=== PATIENT | male | born 1960 | race African-American/Black ===

== ENCOUNTER 2018-05-18 05:27 | Emergency (ER) | payer SELFPAY ==
[2018-05-18 05:35] VITALS: BP 141/86; PULSE 72; TEMP 99; BMI 25.0
--- NOTE | 2018-05-18 05:35 | PDOC ---
History of Present Illness - General Chief Complaint: Edema Stated Complaint: LIP SWELLING Time Seen by Provider: 05/18/18 05:40 History Source: Patient Exam Limitations: No Limitations - History of Present Illness Initial Comments: 05/18/18 05:52 Pt ate shrimp and seafood in a restaurant; felt tingling in face. Took a benadry ; at midnight and slept. Woke 5 hrs later to find left cheek and left corner of lips swollen. Timing/Duration: 4-6 hours Severity: mild, moderate Modifying Factors: worse with: cold therapy, eating, immobilization, medication , movement, rest, other Associated Symptoms: reports: denies symptoms Past History - Travel Traveled outside of the country in the last 30 days: No Close contact w/someone who was outside of country & ill: No - Past Medical History Allergies/Adverse Reactions: Allergies Allergy/AdvReac Type Severity Reaction Status Date / Time No Known Allergies Allergy Unverified 11/14/13 17:02 Home Medications: Ambulatory Orders Finasteride 5 mg PO DAILY 05/07/15 Epinephrine [Epipen] 0.3 mg IJ ONCE #1 auto.injct 05/18/18 Ranitidine HCl [Zantac] 300 mg PO ONCE #7 tablet 05/18/18 predniSONE [Deltasone -] 2 tab PO DAILY #10 tablet 05/18/18 COPD: No Disorders: Yes (ENLARGED PROSTATE) HTN: Yes - Immunization History Immunization Up to Date: (05/04/15) - Suicide/Smoking/Psychosocial Hx Smoking History: Never smoked Hx Alcohol Use: No Drug/Substance Use Hx: No Substance Use Type: None Review of Systems - Review of Systems Constitutional: No: Symptoms Reported, See HPI, Chills, Diaphoresis, Fever, Loss of Appetite, Malaise, Night Sweats, Weakness, Weight Stable, Unintentional Wgt. Loss, Unexplained wgt Loss, Other HEENTM: No: Symptoms Reported, See HPI, Eye Pain, Blurred Vision, Tearing, Recent change in vision, Double Vision, Cataracts, Ear Pain, Ocular Prothesis, Ear Discharge, Nose Pain, Nose Congestion, Tinnitus, Nose Bleeding, Hearing Loss , Throat Pain, Throat Swelling, Mouth Pain, Dental Problems, Difficulty Swallowing, Mouth Swelling, Other Respiratory: No: Symptoms reported, See HPI, Cough, Orthopnea, Shortness of Breath, SOB with Exertion, SOB at Rest, Stridor, Wheezing, Productive cough, Hemoptysis, Other Cardiac (ROS): No: Symptoms Reported, See HPI, Chest Pain, Edema, Irregular Heart Rate, Lightheadedness, Palpitations, Syncope, Chest Tightness, Other ABD/GI: No: Symptoms Reported, See HPI, Abdominal Distended, Abd. Pain w/ defecation, Blood Streaked Bowels, Constipated, Diarrhea, Difficulty Swallowing , Nausea, Poor Appetite, Poor Fluid Intake, Rectal Bleeding, Vomiting, Indigestion, Abdominal cramping, Tarry Stools, Other : No: Symptoms Reported, See HPI, Burning, Dysuria, Discharge, Frequency, Flank Pain, Hematuria, Incontinence, Pain, Urgency, Testicular Mass, Testicular Swelling, Lesions, Testicular Pain, Other Musculoskeletal: No: Symptoms Reported, See HPI, Back Pain, Gout, Joint Pain, Joint Swelling, Muscle Pain, Muscle Weakness, Neck Pain, Joint Stiffness, Other Integumentary: No: Symptoms Reported, See HPI, Bruising, Change in Color, Change in Hair/Nails, Dryness, Erythema, Flushing, Lesions, Lumps, Pallor, Pruritus, Rash, Sweating, Other Neurological: No: Symptoms reported, See HPI, Headache, Numbness, Paresthesia, Pre-Existing Deficit, Seizure, Tingling, Tremors, Weakness, Unsteady Gait, Ataxia, Dizziness, Other *Physical Exam - Vital Signs Last Vital Signs Temp Pulse Resp BP Pulse Ox 99 F 72 16 141/86 100 05/18/18 05:30 05/18/18 05:30 05/18/18 05:30 05/18/18 05:30 05/18/18 05:30 - Physical Exam General Appearance: Yes: Nourished, Appropriately Dressed. No: Apparent Distress HEENT: positive: EOMI, NORMA, Normal ENT Inspection, Normal Voice, Symmetrical, TMs Normal, Pharynx Normal, Other (left lip and cheek swelling) Neck: positive: Trachea midline, Supple Respiratory/Chest: positive: Lungs Clear, Normal Breath Sounds. negative: Respiratory Distress Cardiovascular: positive: Regular Rhythm, Regular Rate, S1, S2 Gastrointestinal/Abdominal: positive: Normal Bowel Sounds, Flat, Soft Musculoskeletal: positive: Normal Inspection Extremity: positive: Normal Capillary Refill, Normal Inspection, Normal Range of Motion Integumentary: positive: Normal Color, Dry, Warm Neurologic: positive: Fully Oriented, Alert, Normal Mood/Affect Medical Decision Making - Medical Decision Making 05/18/18 06:03 No wheeze no sob and pt is stabe for d/c. No tongue swelling. Follow with PMD. *DC/Admit/Observation/Transfer Diagnosis at time of Disposition: Angioedema - Discharge Dispostion Disposition: HOME Condition at time of disposition: Stable Decision to Admit order: No - Prescriptions Prescriptions: Epinephrine [Epipen] 0.3 mg IJ ONCE #1 auto.injct predniSONE [Deltasone -] 2 tab PO DAILY #10 tablet Ranitidine HCl [Zantac] 300 mg PO ONCE #7 tablet - Referrals Referrals: Jaya Herring MD [Primary Care Provider] - - Patient Instructions Printed Discharge Instructions: DI for Angioedema - Post Discharge Activity
[2018-05-18] MEDS ORDERED: DEXAMETHASONE LIQUID 0.5 MG/5 ML 240 ML BULK BOTTLE PO ONE (05:36)
[2018-05-18] MEDS ORDERED: diphenhydrAMINE HCL 25 MG CAPSULE (FP) PO ONE ×2 (05:36→05:38)
[2018-05-18] MEDS ORDERED: DEXAMETHASONE SOD PHOSPHATE 10 MG/1 ML VIAL ONE (05:39)
[2018-05-18] MEDS ORDERED: RANITIDINE HCL 150 MG TABLET (FP) PO ONE (05:46)
[2018-05-18] MEDS ORDERED: RANITIDINE HCL 150 MG TABLET (FP) ONE (05:47)
== END 2018-05-18 05:50 | disposition home or self-care (01) ==
LOC: FER 05:27
DX: T78.3XXA Angioneurotic edema, initial encounter (principal); I10 Essential (primary) hypertension; N40.0 Benign prostatic hyperplasia without lower urinary tract symptoms
CPT/HCPCS: 99282-25

== ENCOUNTER 2020-07-11 09:24 | Emergency (ER) | payer BC, OTHER ==
[2020-07-11] MEDS ORDERED: methylPREDNISolone NA SUCC 125 MG/2 ML VIAL IVPUSH ONE (09:28)
[2020-07-11] MEDS ORDERED: FAMOTIDINE 20 MG/50 ML IVPB 20 MG/50 ML MG IVPB ONE ×2 (09:28→09:31)
[2020-07-11] MEDS ORDERED: methylPREDNISolone NA SUCC 125 MG/2 ML VIAL ONE (09:31)
--- OUTSIDE RECORDS SUMMARY | 2020-07-11 09:33 | XMS ---
:1960 Author Organization [facility] Support Name Relationship Address Phone UE Unavailable Unavailable Unavailable DINESH BAR [address] [facility] [phone] [place] [address] Re-disclosure Warning The records that you are about to access may contain information from federally- assisted alcohol or drug abuse programs. If such information is present, then the following federally mandated warning applies: This information has been disclosed to you from records protected by federal confidentiality rules (42 CFR part 2). The federal rules prohibit you from making any further disclosure of this information unless further disclosure is expressly permitted by the written consent of the person to whom it pertains or as otherwise permitted by 42 CFR part 2. A general authorization for the release of medical or other information is NOT sufficient for this purpose. The Federal rules restrict any use of the information to criminally investigate or prosecute any alcohol or drug abuse patient.The records that you are about to access may contain highly sensitive health information, the redisclosure of which is protected by Article 27-F of the [facility] Public Health law. If you continue you may haveaccess to information: Regarding HIV / AIDS; Provided by facilities licensed or operated by the [facility] Office of Mental Health; or Provided by the [facility] Office for People With Developmental Disabilities. If such information is present, then the following [facility] mandated warning applies: This information has been disclosed to you from confidential records which are protected by state law. State law prohibits you from making any further disclosure of this information without the specific written consent of the person to whom it pertains, or as otherwise permitted by law. Any unauthorized further disclosure in violation of state law may result in a fine or group home sentence or both. A general authorization for the release of medical or other information is NOT sufficient authorization for further disclosure. Insurance Providers Payer name Policy type / Policy ID Covered Covered republican's Policy Plan Coverage type republican ID relationship to Villaseñor Information villaseñor [facility] [id number] Results ID Date Data Source [id number] 01/24/2020 12:00:00 AM EDT [facility] Name Value Range Interpretation Code Description Data Jazmine e(s) Supporting Document(s ) 2019-nCoV [facility] RNA XXX YI+probe- Imp This lab was ordered by [facility] and reported by [employer] Procedure
--- NOTE | 2020-07-11 09:37 | PDOC ---
History of Present Illness - General Chief Complaint: Allergic Reaction Stated Complaint: LIP SWELLING Time Seen by Provider: 07/11/20 09:27 History Source: Patient Exam Limitations: No Limitations - History of Present Illness Initial Comments: 07/11/20 09:31 59 yo male h/o prior allergic reaction to seafood/ shrimp, htn her with c/o facial swelling states started last night, this am woke up both lips swelling. no sob no difficulty swallowing. no stridor. does not feel fullness in throat. can not remember names of his medications. has had similar allergic reaction that improved with meds in past few years ago. when he was evaluated here. no cough. no sob no f/c amlodipine 5mg enalapril 20mg hctz 25 Past History - Medical History Allergies/Adverse Reactions: Allergies Allergy/AdvReac Type Severity Reaction Status Date / Time No Known Allergies Allergy Unverified 11/14/13 17:02 Home Medications: Ambulatory Orders Finasteride 5 mg PO DAILY 05/07/15 Enalapril Maleate 20 mg PO DAILY 07/11/20 Metoprolol Succinate [Toprol Xl] 25 mg PO HS 07/11/20 Tamsulosin HCl [Flomax] 0.4 mg PO HS PRN 07/11/20 COPD: No Disorders: Yes (ENLARGED PROSTATE) HTN: Yes - Immunization History Immunization Up to Date: (05/04/15) - Psycho-Social/Smoking History Smoking History: Never smoked Review of Systems - Review of Systems Constitutional: No: Chills, Fever HEENTM: Yes: Mouth Swelling. No: Eye Pain Respiratory: No: Cough, Shortness of Breath Cardiac (ROS): No: Chest Pain, Edema ABD/GI: No: Nausea, Vomiting : No: Burning, Dysuria, Discharge Musculoskeletal: No: Back Pain, Joint Pain, Muscle Weakness Integumentary: No: Rash All Other Systems: Reviewed and Negative *Physical Exam - Physical Exam 07/11/20 09:35 Patient is awake alert no acute distress there is significant upper and lower lip swelling no noted sublingual edema no uvular edema no stridor appreciated lungs are clear no appreciated wheezing heart is regular 30 murmurs rubs or gallops abdomen soft nontender skin is warm and dry no rash neurologic patient is awake alert and oriented x3 ED Treatment Course - LABORATORY CBC & Chemistry Diagram: 07/11/20 09:40 07/11/20 09:50 Medical Decision Making - Medical Decision Making 07/11/20 09:37 59-year-old male history of hypertension previous allergic reaction here today with lip swelling from allergies versus angioedema from antihypertensives. He cannot remember the names of his medications. Per chart review patient has been on amlodipine hydrochlorothiazide and enalapril 20 in the past he is uncertain if he is still taking that medication or not. Called [facility] pharmacy in number him where patient states he gets his medications have him on file but do not have him describe any recent medications there patient was significant CUELLO e heraclio or lip swelling at this time no lower airway symptomatology. Will treat with Benadryl Solu-Medrol and Pepcid and possibly epinephrine pending his response patient does not improve he will require admission for observation due to the significance of the swelling will also try to find out whether or not he is on NALINI inhibitor and likely recommend discontinuation 07/11/20 11:11 pt found few pills in pocket, confirmed takes enalapril 20, and metoprolol 25. pt not improving on rexamination due to concerns requiring intubation or scop by ENT for airway edema. will transfer to pt [facility] autoaccepted. attending accepting transfer is Dr Chan Discharge - Discharge Information Problems reviewed: Yes Clinical Impression/Diagnosis: Angioedema Condition: Good Disposition: TRANSFER ACUTE CARE/OTHER HOSP - Follow up/Referral Referrals: Jaya Herring PHA [Primary Care Provider] - - Patient Discharge Instructions - Post Discharge Activity - Transfer to Acute Care Facility Receiving Facility Name: [facility]
[2020-07-11 10:00] VITALS: BMI 24.7
[2020-07-11] MEDS ORDERED: EPINEPHrine 1:1,000 0.3 MG/0.3 ML SYR IM ONE (10:03)
[2020-07-11] MEDS ORDERED: EPINEPHrine/PF 1 MG/1 ML (1:1,000) AMPULE ONE (10:05)
[2020-07-11 10:11] LABS: BASO % 1.4 % (0-2.0); EOS % 3.8 % (0-4.5); HEMATOCRIT 43.6 % (35.4-49); HEMOGLOBIN 14.6 GM/dl (11.7-16.9); LYMPH % 36.4 % (8-40); MCH 29.5 pg (25.7-33.7); MCHC 33.5 g/dl (32.0-35.9); MEAN CELL VOLUME 87.9 fl (80-96); MEAN PLT VOLUME 9.3 fl (7.5-11.1); MONO % 8.8 % (3.8-10.2); NEUT % 49.6 % (42.8-82.8); PLATELET COUNT 170 K/MM3 (134-434); RBC 4.96 M/mm3 (4.00-5.60); RDW 12.1 % (11.9-15.9)
[2020-07-11 10:19] LABS: ALBUMIN 3.8 g/dl (3.4-5.0); BILIRUBIN,TOTAL 0.6 mg/dl (0.2-1); CALCIUM 9.1 mg/dl (8.5-10); POTASSIUM 3.9 mmol/L (3.5-5.1); TOT PROT 7.2 g/dl (6.4-8.2)
[2020-07-11 11:33] VITALS: BP 138/69; TEMP 98.9
[2020-07-11 11:44] VITALS: PULSE 84
== END 2020-07-11 11:52 | disposition short-term general hospital (02) ==
LOC: FER 09:24
PROC: 3E033GC Introduction of Other Therapeutic Substance into Peripheral Vein, Percutaneous Approach (ICD-10-PCS; principal; 2020-07-11)
PROC: 3E023GC Introduction of Other Therapeutic Substance into Muscle, Percutaneous Approach (ICD-10-PCS; 2020-07-11)
DX: T78.3XXA Angioneurotic edema, initial encounter (principal)
CPT/HCPCS: 36415; 80053; 85025; 99285-25; U0003

== ENCOUNTER 2023-07-23 14:18 | Emergency (ER) | payer OTHER, BC ==
[2023-07-23] MEDS ORDERED: ACETAMINOPHEN 500 MG TABLET (FP) PO ONE (14:47)
[2023-07-23 15:04] VITALS: BP 150/92; PULSE 88; RESP 18; TEMP 98; BMI 26.2
[2023-07-23] MEDS ORDERED: KETOROLAC TROMETHAMINE 30 MG/1 ML VIAL IM ONE (15:07)
[2023-07-23] MEDS ORDERED: LIDOCAINE 5% TOPICAL PATCH TP ONE (15:07)
[2023-07-23] MEDS ORDERED: ACETAMINOPHEN 500 MG TABLET (FP) ONE (15:38)
[2023-07-23] MEDS ORDERED: LIDOCAINE 5% TOPICAL PATCH ONE (15:38)
[2023-07-23] MEDS ORDERED: KETOROLAC TROMETHAMINE 30 MG/1 ML VIAL ONE (15:38)
[2023-07-23] MEDS ORDERED: LIDOCAINE PATCH REMOVAL MC ONE (22:00)
== END 2023-07-23 16:17 | disposition home or self-care (01) ==
LOC: FER 14:18
PROC: 3E0233Z Introduction of Anti-inflammatory into Muscle, Percutaneous Approach (ICD-10-PCS; principal; 2023-07-23)
DX: M25.511 Pain in right shoulder (principal); R07.81 Pleurodynia; M54.50 Low back pain, unspecified; V49.40XA Driver injured in collision with unspecified motor vehicles in traffic accident, initial encounter; Y93.I9 Activity, other involving external motion
CPT/HCPCS: 71101-TC-RT-FY; 72100-TC-FY; 73030-TC-RT-FY; 99284-25

== ENCOUNTER 2024-05-26 16:04 | Emergency (ER) | payer BC, OTHER ==
[2024-05-26 16:34] VITALS: RESP 18; BMI 34.9
[2024-05-26] MEDS: KETOROLAC TROMETHAMINE 30 MG/1 ML VIAL IM ONE (17:32)
[2024-05-26] MEDS ORDERED: LIDOCAINE 5% TOPICAL PATCH ONE (17:32)
[2024-05-26] MEDS ORDERED: KETOROLAC TROMETHAMINE 30 MG/1 ML VIAL ONE (17:32)
[2024-05-26] MEDS: LIDOCAINE 5% TOPICAL PATCH TP ONE (17:34)
[2024-05-26 18:39] VITALS: BP 127/92; PULSE 65; TEMP 98.2
[2024-05-26] MEDS ORDERED: LIDOCAINE PATCH REMOVAL MC SCH (22:00)
== END 2024-05-26 18:47 | disposition home or self-care (01) ==
LOC: FER 16:04
PROC: 3E0133Z Introduction of Anti-inflammatory into Subcutaneous Tissue, Percutaneous Approach (ICD-10-PCS; principal; 2024-05-26)
DX: M54.50 Low back pain, unspecified (principal)
CPT/HCPCS: 72100-TC-FY; 99284-25